=== PATIENT | female | born 2005 | race Caucasian/White ===

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

== ENCOUNTER 2025-03-06 21:57 | Emergency (ER) | payer MEDICAID, SELFPAY ==
[2025-03-06 22:03] VITALS: BP 150/70; PULSE 102; RESP 16; TEMP 36.7; O2SAT 99
--- NOTE | 2025-03-06 22:34 | W.ED.GENAD ---
Discharge Plan Disposition Patient Disposition: Home Discharge Details Clinical Impression: of unknown anatomic location, Vaginal bleeding in Primary Care Provider: ERIKA DUDLEY ED Provider: Zac Cid Home Meds and New Rx's Prescriptions: No Action cholecalciferol (vitamin D3) 50 mcg (2,000 unit) tablet 50 mcg PO DAILY Patient Comments: TAKE ONE TABLET BY MOUTH EVERY DAY Discharge Instructions Instructions: symptoms Additional Instructions: As discussed, your bedside ultrasound today did not show definitive signs of an intrauterine . As such you have been diagnosed with a of unknown location. Given you will have no acute pain, and have stable vital signs, I would recommend that you follow-up within 72 hours (would recommend on Sunday morning) for repeat hormone testing ultrasound. Your blood type is O+, so you do not need to worry about Rh incombatability with your child. If you develop worsening pain, bleeding, or any other new or concerning symptoms in the meantime please seek evaluation in the emergency department for further management. Stand Alone Forms: Portal Information HPI General Date/Time Provider Initiated Documentation: 03/06/25 21:59. HPI Narrative: MDM/Narrative: 19-year-old female presents for vaginal bleeding in setting of of unknown location 5 weeks by last menstrual cycle. Bedside ultrasound shows no definite gestational sac, no free fluid. Patient with elevated beta-hCG however not at the expected transabdominal ultrasound levels to detect IUP, and blood type is O+. Since patient is pain-free, hemodynamically stable with a reassuring examination however follow-up in 72 hours for repeat beta quant and ultrasound. Clinical impression: of unknown location Vaginal bleeding Disposition: Home HPI: 19-year-old female who is approximately 5 weeks gravid A0, with confirmed beta quant performed at [place] last week, with no prior ultrasound, presents for vaginal bleeding. Patient states that she was having intercourse today and then shortly thereafter developed some bleeding, described as a small amount not needing a pad. She denies any associated pain, fever or any other new or concerning symptoms. ROS: Negative besides as mentioned above Exam: Gen: A&O NAD HEENT: NCAT, EOMI, not icteric. External ears normal. No rhinorrhea. Moist mucous membranes. Neck: Supple, full range of motion, no observable masses, No meningeal sign. Lungs: No Respiratory distress. CV: RRR, no edema. Abdomen: Soft, nondistended, No rebound tenderness. MSK: No joint swelling, no redness. Skin: No rashes, petechiae, lesions. Normal color per patient. Neuro: Normal Gait, Grossly intact. Psych: Appropriate for situation. Labs: Laboratory Tests Range/Units 03/06/25 03/06/25 22:40 22:55 WBC (4.4-10.8) 10^3/uL 7.19 RBC (3.93-5.22) 10^6/uL 3.95 Hgb (11.2-15.7) g/dL 12.3 Hct (36.0-46.0) % 35.8 L MCV (80-95) fL 91 MCH (27.0-33.0) pg 31.1 MCHC (32.0-36.0) % 34.4 RDW (11.7-14.6) % 11.9 Plt Count (130-400) 10^3/uL 253 MPV (8.0-11.0) fL 10.4 Immature Gran % % 0.3 Neutrophils % % 63.5 Lymphocytes % % 25.5 Monocytes % % 9.0 Eosinophils % % 1.3 Basophils % % 0.4 Nucleated RBC % (0.0-0.3) % 0.0 Absolute Neutrophils (1.2-6.7) 10^3/uL 4.57 Absolute Lymphocytes (1.2-3.4) 10^3/uL 1.83 Absolute Monocytes (0.1-0.8) 10^3/uL 0.65 Absolute Eosinophils (0.0-0.7) 10^3/uL 0.09 Absolute Basophils (0.0-0.2) 10^3/uL 0.03 Sodium (136-145) mmol/L 140 Potassium (3.5-5.1) mmol/L 3.7 Chloride (98-107) mmol/L 106 Carbon Dioxide (20.0-31.0) mmol/L 26.8 Anion Gap (3-11) mmol/L 7.2 BUN (9-23) mg/dL 13 Creatinine (0.55-1.02) mg/dL 0.55 Est GFR (CKD-EPI 2020) (mL/min/1.73m2) 141.94 Glucose (74-106) mg/dL 105 Calcium (8.3-10.6) mg/dL 9.4 Total Bilirubin (0.2-1.2) mg/dL 0.50 AST (<34) U/L 23 ALT (10-49) U/L 26 Alkaline Phosphatase (46-116) U/L 91 Total Protein (5.7-8.2) g/dL 7.7 Albumin (3.2-5.0) g/dL 4.6 HCG, Quant (1.5-4.2) mIU/mL 4818 H ABO/Rh O Positive Radiology: Limited OB exam, transabdominal: There is a intrauterine fluid collection, with no definitive gestational sac. No free fluid in the pelvis, as performed and read by me. 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 Course Vital Signs Vital signs: Vital Signs Temperature 36.7 C 03/06/25 22:03 Pulse 102 H 03/06/25 22:03 Respiratory Rate 16 03/06/25 22:03 Blood Pressure 150/70 H 03/06/25 22:03 Pulse Oximetry 99 03/06/25 22:03 Temperature 36.7 C 03/06/25 22:03 Pulse 102 H 03/06/25 22:03 Respiratory Rate 16 03/06/25 22:03 Blood Pressure 150/70 H 03/06/25 22:03 Blood Pressure Position Sitting 03/06/25 22:03 Pulse Oximetry 99 03/06/25 22:03 Oxygen Delivery Method Room Air 03/06/25 22:03 Oxygen Flow Rate 0 03/06/25 22:03 Pain Level 0 03/06/25 22:11 PFSH All Active Problems (Updated 03/06/25 @ 22:58 by Zac Cid MD) Vaginal bleeding in (Acute) of unknown anatomic location (Acute) Medical History No significant past medical history Surgical History No significant past surgical history Social History Smoking/Tobacco Use Status: Never Smoking risk assessment performed?: Yes Alcohol Intake: never Drug use: Never Substance use type: does not use Housing: house Do you feel safe at home: Yes Do you feel safe in your relationship?: Yes POCUS Exam (ED) Limited OB Exam DATE OF EXAM:: 03/06/25 TIME OF EXAM:: 22:37 PROVIDER THAT PERFORMED THE STUDY: Zac Cid IS THIS A REPEAT EXAM DURING THIS ENCOUNTER: No Type of Exam: Pelvic OB Trans Abdominal REASON FOR EXAM: Vaginal Bleeding VISUALIZED STRUCTURES: Uterus PERTINENT FINDINGS/IMPRESSION: No apparent abnormalities and No apparent IUP; No free fluid Exam Complete. DIFFERENTAL DIAGNOSES: Ectopic , IUP, threatened
[2025-03-06 22:48] LABS: Abs Immature Grans 0.02 10^3/uL (0.0-0.06); HCT 35.8 % (36.0-46.0); HGB 12.3 g/dL (11.2-15.7); Immature Grans % 0.3 %; MCH 31.1 pg (27.0-33.0); MCHC 34.4 % (32.0-36.0); MCV 91 fL (80-95); MPV 10.4 fL (8.0-11.0); Platelet Count 253 10^3/uL (130-400); RBC 3.95 10^6/uL (3.93-5.22); RDW 11.9 % (11.7-14.6); RDW-SD 39.6 fL; WBC 7.19 10^3/uL (4.4-10.8)
[2025-03-06 23:09] LABS: ALT 26 U/L (10-49); AST 23 U/L (<34); Albumin 4.6 g/dL (3.2-5.0); Alkaline Phosphatase 91 U/L (46-116); Anion Gap 7.2 mmol/L (3-11); BUN 13 mg/dL (9-23); Bilirubin, Total 0.50 mg/dL (0.2-1.2); CO2 26.8 mmol/L (20.0-31.0); Calcium 9.4 mg/dL (8.3-10.6); Chloride 106 mmol/L (98-107); Glucose 105 mg/dL (74-106); Potassium 3.7 mmol/L (3.5-5.1); Sodium 140 mmol/L (136-145); Total Protein 7.7 g/dL (5.7-8.2)
[2025-03-06 23:24] LABS: HCG Quant, Pregnancy 4818 mIU/mL (1.5-4.2)
[2025-03-06 23:50] VITALS: BP 133/59; PULSE 91; RESP 16; O2SAT 98
== END 2025-03-06 23:52 | disposition home or self-care (01) ==
PROVIDERS: Emergency Provider General Practice; PCP Internal Medicine
DX: O99.891 Other specified diseases and conditions complicating pregnancy (principal); O20.9 Hemorrhage in early pregnancy, unspecified
CPT/HCPCS: 36415; 76815; 80053; 86900; 86901; 99284; 84702; 85025; 99283